=== PATIENT | female | born 1990 | race Caucasian/White ===

== ENCOUNTER 2021-10-14 17:22 | Emergency (ER) | payer SELFPAY ==
[2021-10-14 17:31] VITALS: BP 159/109; PULSE 112
== END 2021-10-14 17:57 | disposition home or self-care (01) ==
LOC: JD.ED 17:22
DX: K08.89 Other specified disorders of teeth and supporting structures (principal); Z86.16 Personal history of COVID-19
CPT/HCPCS: 99282; 99283